=== PATIENT | female | born 1960 | race Caucasian/White ===

== ENCOUNTER 2025-03-09 22:35 | Emergency (ER) | payer OTHER ==
[~2025-03-09] VITALS: Ht 157.5 cm; Wt 59.0 kg
[2025-03-09 22:58] VITALS: BP 149/70; TEMP 98; O2SAT 100
[2025-03-10] MEDS ORDERED: NAPR-1009 PO (01:09)
[2025-03-10] MEDS ORDERED: CEPH500C2 PO (01:09)
[2025-03-10] MEDS ORDERED: CEPHALEXIN MONOHYDRATE 500 MG CAPSULE PO ONE (01:13)
[2025-03-10] MEDS ORDERED: HYDROCODONE/APAP 5/325MG TABLET ONE (01:13)
[2025-03-10] MEDS: CEPHALEXIN MONOHYDRATE 500 MG CAPSULE PO ONE (01:20)
[2025-03-10] MEDS: HYDROCODONE/APAP 5/325MG TABLET PO ONE (01:20)
== END 2025-03-10 01:30 | disposition home or self-care (01) ==
LOC: ER 23:06
DX: S60.221A Contusion of right hand, initial encounter (principal); I10 Essential (primary) hypertension; E11.9 Type 2 diabetes mellitus without complications; W22.09XA Striking against other stationary object, initial encounter; Y93.89 Activity, other specified; Y92.89 Other specified places as the place of occurrence of the external cause; Y99.8 Other external cause status
CPT/HCPCS: 73130-TC